=== PATIENT | male | born 1990 | race Caucasian/White ===

== ENCOUNTER → 2017-02-11 | Outpatient (CLI) | payer OTHER ==
[~2017-02-11] MED LIST: ANTIBIOTIC; AZIT250T81 PO; METH20TA PO
--- NOTE | 2017-02-11 15:30 | Diagnostic Imaging Report ---
INDICATION: Left wrist injury with pain. TECHNIQUE: AP, oblique, and lateral views of the left wrist are obtained. FINDINGS: No acute fracture or dislocation is identified. No abnormal lytic or sclerotic focus is seen, and there is no radiopaque foreign body. IMPRESSION: No acute abnormality. Dictated by: Dictated on workstation # [id number]
== END ==
LOC: RAD 14:39
PROVIDERS: ATTEND Nurse Practitioner Family
DX: M25.532 Pain in left wrist (principal)
CPT/HCPCS: 73110